=== PATIENT | male | born 1955 ===

== ENCOUNTER 2025-06-17 09:08 | Outpatient (AMB) | payer MEDICARE, SELFPAY | END 2025-06-17 09:27 | disposition home or self-care (01) | LOC: HO.HMGAL 09:08 | PROVIDERS: PCP Family Medicine; Visit Provider Registered Nurse Emergency | DX: J30.89 Other allergic rhinitis (principal) | CPT/HCPCS: 95117; 95165 ==

== ENCOUNTER 2025-07-19 10:00 | Outpatient (AMB) | payer MEDICARE, SELFPAY | END 2025-07-19 10:22 | disposition home or self-care (01) | LOC: HO.HMGAL 10:00 | PROVIDERS: PCP Nurse Practitioner Family; Visit Provider Registered Nurse Emergency | DX: J30.89 Other allergic rhinitis (principal) | CPT/HCPCS: 95117; 95165 ==

== ENCOUNTER 2025-08-16 09:26 | Outpatient (AMB) | payer MEDICARE, SELFPAY | END 2025-08-16 09:26 | disposition home or self-care (01) | LOC: HO.HMGAL 09:26 | PROVIDERS: PCP Nurse Practitioner Family; Visit Provider Registered Nurse Emergency | DX: J30.89 Other allergic rhinitis (principal) | CPT/HCPCS: 95117; 95165 ==

== ENCOUNTER 2025-09-13 08:55 | Outpatient (AMB) | payer MEDICARE, SELFPAY | END 2025-09-13 08:56 | disposition home or self-care (01) | LOC: HO.HMGAL 08:55 | PROVIDERS: PCP Nurse Practitioner Family; Visit Provider Registered Nurse Emergency | DX: J30.89 Other allergic rhinitis (principal) | CPT/HCPCS: 95117; 95165 ==

== ENCOUNTER 2025-10-11 10:30 | Outpatient (AMB) | payer MEDICARE, SELFPAY | END 2025-10-11 10:31 | disposition home or self-care (01) | LOC: HO.HMGAL 10:30 | PROVIDERS: PCP Nurse Practitioner Family; Visit Provider Registered Nurse Emergency | DX: J30.89 Other allergic rhinitis (principal) | CPT/HCPCS: 95117; 95165 ==